=== PATIENT | female | born 1965 | race Caucasian/White ===

== ENCOUNTER 2016-10-09 17:03 | Emergency (ER) | payer OTHER ==
[~2016-10-09] VITALS: Ht 152.4 cm; Wt 103.0 kg
[~2016-10-09 17:03] MED LIST: ASPEC81 PO; ATOR-24 PO; CYAN100T6 PO; FISHOIL PO; LISI-729 PO; METO50TA16 PO; MULT-506 PO; NTRGSL/4 UT; RANITAB33 PO
[2016-10-09 17:05] VITALS: TEMP 37; Ht 152.4 cm; Wt 103.0 kg
[2016-10-09] MEDS ORDERED: ASPI81TA28 PO (18:53)
[2016-10-09] MEDS ORDERED: ATOR-26 PO (18:53)
[2016-10-09] MEDS ORDERED: CYAN10005 PO (18:53)
[2016-10-09] MEDS ORDERED: OMEG10007 PO (18:53)
--- NOTE | 2016-10-09 18:56 | EMERGENCY ROOM VISIT NOTE ---
History Report prepared by Elizabeth: Radha Pretty Under the Supervision of: Dr. Keith Hamilton M.D. First contact with patient: 18:43 Chief Complaint: CARDIAC ASSESSMENT Stated Complaint: PAIN DOWN LF ARM,HIGH BP Nursing Triage Summary: pt to the ED with c/o left arm pain and nausea and warm sensation that is intermittant in arm that started around 3 today but pain in arm all day elevated BP at work hx AR previously no chest pain no SOB no numbness and no tingling took BP meds History of Present Illness The patient is a 51 year old female who presents to the Emergency Room with complaints of intermittent left arm pain beginning today. The patient states that she has been having intermittent arm pain beginning 6 months ago. She notes that she has a history of heart attack and has a stent placed. She reports that today the pain in her arm scared her more and was slightly worse. She complains of a warm sensation in her left arm. The patient denies any numbness and tingling, pain with breathing, and diaphoresis. She states that she has occasional palpitations that she often ignores. The patient explains that her symptoms today are not similar to her heart attack and she previously felt nausea and diaphoresis. She reports that she had her last cardiac catheterization 5 years ago. She notes that she was prescribed Lisinopril and has not taken it in 6 months as she feel that she does not need it. The patient reports that she took aspirin but not the nitro that she has at home. Source of History: patient Onset: today Position: arm (left) Timing: intermittent Associated Symptoms: No numbness Note: She complains of a warm sensation in her left arm. The patient denies any tingling, pain with breathing. Review of Systems See HPI for pertinent positives & negatives. A total of 10 systems reviewed and were otherwise negative. Past Medical & Surgical Medical Problems: (1) Chronic Total Occlusion Of Coronary Artery (2) Coronary Atherosclerosis Of [place] Coronary Vessel (3) Renal Colic Family History No pertinent family history stated. Social History Smoking Status: Current Every Day Smoker Alcohol Use: none Marital Status: Housing Status: lives with family Current/Historical Medications Scheduled Aspirin (Aspirin Ec), 81 MG PO QAM Atorvastatin (Lipitor), 80 MG PO HS Cyanocobalamin (Vitamin B-12), 1,000 MCG PO QAM Fish Oil ([place]-3), 1 CAP PO TID Metoprolol Tartrate (Lopressor) (Lopressor), 50 MG PO BID Multivitamin (Multivitamin), 1 TAB PO DAILY Nitroglycerin (Nitrostat), 0.4 MG UT PRN Scheduled PRN Ranitidine Hcl (Zantac), 75 MG PO DAILY PRN for Indigestion Allergies Coded Allergies: No Known Allergies (Verified , 10/09/16) Physical Exam Vital Signs Date Time Temp Pulse Resp B/P (MAP) Pulse Ox O2 Delivery O2 Flow Rate FiO2 10/09/16 20:58 66 20 132/95 96 10/09/16 19:56 69 10/09/16 19:38 67 20 162/81 95 Room Air 10/09/16 19:38 97 Room Air 10/09/16 19:38 97 Room Air 10/09/16 19:07 95 Room Air 10/09/16 17:05 37.0 78 20 179/94 96 Room Air Physical Exam GENERAL: Patient is a healthy-appearing well-nourished female HEAD: Normocephalic atraumatic EYES: Ocular movements intact pupils equal and react to light OROPHARYNX mucous membranes are moist no exudates present no erythema or edema present NECK: Supple no nuchal rigidity CHEST: Good equal expansion LUNGS: Clear and equal to auscultation CARDIAC: Normal S1 and S2 ABDOMEN: Soft nontender no guarding BACK: No CVA tenderness EXTREMITIES: No pain upon palpation normal muscle strength in all groups no clubbing cyanosis or edema NEURO: Patient is following commands and answering questions appropriately. Alert and oriented x3 Cranial Nerves 2-12 grossly intact Medical Decision & Procedures ER Provider Diagnostic Interpretation: X-ray results as stated below per interpretation by me and the radiologist: CHEST ONE VIEW PORTABLE FINDINGS: The bones soft tissues and hemidiaphragms are normal. The cardiomediastinal silhouette is normal. The lungs are clear. The pulmonary vasculature is normal. IMPRESSION: Negative chest. The above report was generated using voice recognition software. It may contain grammatical, syntax or spelling errors. Electronically signed by: Noble Aguilar M.D. 10/09/2016 7:11 PM Dictated Date/Time: 10/09/2016 7:11 PM Laboratory Results 10/09/16 19:25 Red Blood Count 4.96, Mean Corpuscular Volume 91.7, Mean Corpuscular Hemoglobin 30.4, Mean Corpuscular Hemoglobin Concent 33.2, Mean Platelet Volume 11.1, Neutrophils (%) (Auto) 70.4, Lymphocytes (%) (Auto) 23.0, Monocytes (%) (Auto) 5.2, Eosinophils (%) (Auto) 1.0, Basophils (%) (Auto) 0.2, Neutrophils # (Auto) 9.19, Lymphocytes # (Auto) 3.00, Monocytes # (Auto) 0.68, Eosinophils # (Auto) 0.13, Basophils # (Auto) 0.02 10/09/16 19:25 Test 10/09/16 19:25 White Blood Count 13.05 K/uL (4.8-10.8) Red Blood Count 4.96 M/uL (4.2-5.4) Hemoglobin 15.1 g/dL (12.0-16.0) Hematocrit 45.5 % (37-47) Mean Corpuscular Volume 91.7 fL (80-100) Mean Corpuscular Hemoglobin 30.4 pg (25-34) Mean Corpuscular Hemoglobin Concent 33.2 g/dl (32-36) Platelet Count 232 K/uL (130-400) Mean Platelet Volume 11.1 fL (7.4-10.4) Neutrophils (%) (Auto) 70.4 % Lymphocytes (%) (Auto) 23.0 % Monocytes (%) (Auto) 5.2 % Eosinophils (%) (Auto) 1.0 % Basophils (%) (Auto) 0.2 % Neutrophils # (Auto) 9.19 K/uL (1.4-6.5) Lymphocytes # (Auto) 3.00 K/uL (1.2-3.4) Monocytes # (Auto) 0.68 K/uL (0.11-0.59) Eosinophils # (Auto) 0.13 K/uL (0-0.5) Basophils # (Auto) 0.02 K/uL (0-0.2) RDW Standard Deviation 45.7 fL (36.4-46.3) RDW Coefficient of Variation 13.6 % (11.5-14.5) Immature Granulocyte % (Auto) 0.2 % Immature Granulocyte # (Auto) 0.03 K/uL (0.00-0.02) Anion Gap 10.0 mmol/L (3-11) Est Creatinine Clear Calc Drug Dose 113.0 ml/min Estimated GFR () 119.5 Estimated GFR (Non- 103.1 BUN/Creatinine Ratio 19.0 (10-20) Calcium Level 8.4 mg/dl (8.5-10.1) Total Bilirubin 0.3 mg/dl (0.2-1) Direct Bilirubin < 0.1 mg/dl (0-0.2) Aspartate Amino Transf (AST/SGOT) 22 U/L (15-37) Alanine Aminotransferase (ALT/SGPT) 30 U/L (12-78) Alkaline Phosphatase 114 U/L (45-117) Total Creatine Kinase 118 U/L (26-192) Creatine Kinase MB 0.9 ng/ml (0.5-3.6) Creatine Kinase MB Ratio 0.8 (0-3.0) Troponin I < 0.015 ng/ml (0-0.045) Total Protein 7.4 gm/dl (6.4-8.2) Albumin 3.4 gm/dl (3.4-5.0) Lipase 123 U/L (73-393) Labs reviewed by ED physician. ECG Indication: other (arm pain) Rate (beats per minute): 77 Rhythm: normal sinus Findings: no acute ischemic change, no ectopy ED Course 1842: Past medical records reviewed. The patient was evaluated in room C6. A complete history and physical examination was performed. 2030: I discussed the patient's case with Dr. Salas, she has agreed to evaluate the patient for further management and care. 2042: I updated the patient. She does not want to stay in the hospital despite my strong recommendation. 2048: Upon reexamination the patient is doing well. I discussed results and treatment plan with the patient. The patient verbalizes agreement and understanding. The patient is ready for discharge. Medical Decision Differential diagnosis: Etiologies such as cardiac ischemia, aortic dissection, pulmonary embolism, pneumonia, pneumothorax, musculoskeletal, infections, pericarditis, myocarditis , esophageal rupture, gastrointestinal, as well as others were entertained. Medication Reconciliation: I attest that I have personally reviewed the patient' s current medication list Blood Pressure Screening: Patient was found to have an elevated blood pressure and was referred to their primary care doctor for recheck and further treatment This is a 51-year-old female who presents emergency department complaining of chest pain that has been on for the past 6 months. I will note that the patient has a history of a stent placed previously and she has not been taking her hypertensive medication. In addition I feel that the patient is a high risk patient is sent home. I discussed my findings with her including a normal EKG normal CK-MB and troponin. I felt that the patient should be admitted however the patient is adamantly refusing. I stressed the need for follow-up with her primary care physician. Patient and family were in agreement with the treatment plan. The patient has demonstrated no significant defect in the decision-making capacity to make choices. The encounter had a good level of communication with language the patient can easily understand. I feel trust was present and conveyed that our action/intentions were the best interest of the patient. The patient was given all relevant information and reiterated the explained risks and benefits. The patient explained the reasoning for refusing treatment clearly. The patient possesses and expresses a set of values and goals, the ability to communicate and understand, and an ability to reason and deliberate. Despite acting emphatically, attentively and with the utmost patient's the patient declined further treatment. I offered options, negotiated, and explored every reasonable choice. I must respect the patient's autonomy and that they feel that their choices are best for them despite the associated risks of leaving without completing the evaluation. The patient was informed about the findings as listed above. All questions were answered and he was pleased with the treatment. Return instructions were outlined and the patient was discharged in stable condition. Consults Time Called: 2028 Consulting Physician[place] Dr. Salas [place] [facility] [place] Call: 2030 I discussed the patient's case with Dr. Salas, she has agreed to evaluate the patient for further management and care. Impression Primary Impression: Precordial chest pain Scribe Attestation The scribe's documentation has been prepared under my direction and personally reviewed by me in its entirety. I confirm that the note above accurately reflects all work, treatment, procedures, and medical decision making performed by me. Departure Information Dispostion Being Evaluated By Hospitalist Zi Davenport M.D. (PCP) Forms IMPORTANT VISIT INFORMATION Patient Instructions Chest Pain - [facility], My [facility] Additional Instructions Resume Lisinopril FOllow up with Cardiology this week You have been examined and treated today on an emergency basis only. This is not a substitute for, or an effort to provide, complete comprehensive medical care. It is impossible to recognize and treat all injuries or illnesses in a single emergency department visit. It is therefore important that you follow up closely with Dr Amezcua. Call as soon as possible for an appointment. Thank you for your time and consideration. I look forward to speaking with you again soon. Please don't hesitate to call us if you have any questions.
--- NOTE | 2016-10-09 19:12 | DIAGNOSTIC IMAGING REPORT ---
CHEST ONE VIEW PORTABLE CLINICAL HISTORY: CHEST PAIN COMPARISON STUDY: 06/11/2009 FINDINGS: The bones soft tissues and hemidiaphragms are normal. The cardiomediastinal silhouette is normal. The lungs are clear. The pulmonary vasculature is normal. IMPRESSION: Negative chest. The above report was generated using voice recognition software. It may contain grammatical, syntax or spelling errors. Electronically signed by: Noble Aguilar M.D. 10/09/2016 7:11 PM Dictated Date/Time: 10/09/2016 7:11 PM
[2016-10-09 19:38] VITALS: O2SAT 97
[2016-10-09 19:41] LABS: BASO % 0.2 %; BASO ABS # 0.02 K/uL (0-0.2); COMPLETE YES; HEMATOCRIT 45.5 % (37-47); IG% 0.2 %; MEAN CELL VOLUME 91.7 fL (80-100); MEAN CORPUSCULAR HEMOGLOBIN 30.4 pg (25-34); MEAN CORPUSCULAR HGB CONC 33.2 g/dl (32-36); MEAN PLATELET VOLUME 11.1 fL (7.4-10.4); MONO % 5.2 %; NEUT % 70.4 %; PLATELET COUNT 232 K/uL (130-400); RED BLOOD COUNT 4.96 M/uL (4.2-5.4); WHITE BLOOD COUNT 13.05 K/uL (4.8-10.8)
[2016-10-09 19:59] LABS: ALT/SGPT 30 U/L (12-78); AST/SGOT 22 U/L (15-37); BLOOD UREA NITROGEN 12 mg/dl (7-18); CALCIUM 8.4 mg/dl (8.5-10.1); CARBON DIOXIDE 23 mmol/L (21-32); CHLORIDE 108 mmol/L (98-107); CREATININE 0.63 mg/dl (0.60-1.20); GLUCOSE 80 mg/dl (70-99); POTASSIUM 4.2 mmol/L (3.5-5.1); SODIUM 141 mmol/L (136-145)
[2016-10-09 20:04] LABS: ALKALINE PHOSPHATASE 114 U/L (45-117); CKMB/CK RATIO 0.8 (0-3.0)
[2016-10-09 20:58] VITALS: BP 132/95; PULSE 66; O2SAT 96
== END 2016-10-09 21:00 | disposition home or self-care (01) ==
LOC: C.EDB 17:03 → C.EDC 21:00
DX: R07.2 Precordial pain (principal); I25.82 Chronic total occlusion of coronary artery; I25.10 Atherosclerotic heart disease of native coronary artery without angina pectoris; I25.2 Old myocardial infarction; F17.200 Nicotine dependence, unspecified, uncomplicated; Z79.82 Long term (current) use of aspirin

== ENCOUNTER 2018-06-18 01:20 | Observation (INO) ==
--- NOTE | 2018-06-18 01:39 | Emergency Department Note ---
History of Present Illness General Chief Complaint: Chest Pain Stated Complaint: CHEST PAIN,TINGLING IN Source: patient Mode of arrival: ambulatory Limitations: no limitations History of Present Illness Provider Complaint: chest pain Onset (ago): hour(s) Time: 23:00 Duration: now resolved Onset: during rest Pain Location: substernal Pain Radiation: none Severity: mild Maximum Pain Intensity: 2 Current Pain Intensity: 0 Quality: + tightness Relieved By: + nothing Exacerbated By: + nothing Associated symptoms: no nausea, no vomiting, no diaphoresis, no dyspnea, no fever and no cough Treatments prior to arrival: none This is a 53-year-old female who presents with chest pain. She describes it as a tightness. It started approximately 2-1/2 hours prior to arrival. It is located in the substernal region without radiation. No associated shortness of breath, diaphoresis, nausea or lightheadedness. It is now resolved. At its maximal intensity was 2 out of 10 in severity. She also had an ache in her left arm which she thinks was unrelated to the chest discomfort. She does have a prior history of NH and has had a cardiac stent. Currently she is without symptoms. She did take an aspirin this morning as well as 2 aspirins prior to arrival when her symptoms started. Home Medications Home Medications Medication Instructions Recorded Confirmed Type Metoprolol Tartrate (Lopressor) 50 mg PO BID 90 Days #0 06/30/11 Rx (Lopressor) Multivitamin 1 tab PO DAILY #0 tab 01/04/14 History Nitroglycerin (Nitrostat) 0.4 mg UT PRN #0 btl 01/04/14 History RANITIDINE HCL (ZANTAC) 75 mg PO DAILY PRN #0 tab 01/04/14 History ASPIRIN (ASPIRIN EC) 81 mg PO QAM #0 10/09/16 History ATORVASTATIN (LIPITOR) 80 mg PO HS #0 tab 10/09/16 History Cyanocobalamin (Vitamin B-12) 1,000 mcg PO QAM #0 tab 10/09/16 History Fish Oil ([place]-3) 1 cap PO TID #0 cap 10/09/16 History Allergies Allergy/AdvReac Type Severity Reaction Status Date / Time No Known Allergies Allergy Verified 10/09/16 18:51 Past Med/Surg History Medical History CAD (coronary artery disease) Social History Feels Safe at Home: Yes Smoking Status: Current every day smoker Review of Systems A total of 10 systems reviewed and were otherwise negative Physical Exam Vital Signs Vital Signs - 24 hr 06/18/18 01:22 06/18/18 01:34 06/18/18 01:40 Temperature 37.2 C Temperature Source Oral Sepsis Recent Fever Within 48 Hours No Sepsis Action Taken by Nursing No Action Required Pulse Rate 77 74 Pulse Rate [Apical] 74 Respiratory Rate 18 18 22 Respiratory Effort / Characteristics Non-Labored Spontaneous Non-Labored Spontaneous Respiratory Depth Normal Normal Blood Pressure 161/104 H Blood Pressure [Right Arm] 176/95 H Blood Pressure Mean 123 Blood Pressure Mean [Right Arm] 122 Blood Pressure Position [Right Arm] Lying Pulse Oximetry 97 97 95 Oxygen Delivery Method Room Air Room Air Room Air Constitutional: Vital signs reviewed. Eyes: Pupils are equal round reactive to light. Conjunctiva are noninjected. ENT: Pharynx is clear without erythema or exudate. Mucous membranes are moist. Neck supple without meningeal signs. Respiratory: Clear to auscultation bilaterally. Breath sounds are equal bilaterally. Cardiovascular: Regular rate and rhythm. No rubs or gallops. GI: Soft, nondistended and nontender. Bowel sounds are present. Musculoskeletal: No peripheral edema. No lower extremity tenderness. No tenderness to the sternum. Integumentary: No cyanosis. or jaundice. Neurological: The patient is awake and alert. No focal deficits. Psychiatric: Normal affect. Not anxious appearing. Course Reevaluation(s) Reevaluation #1: No chest pain. Discuss test results and treatment plan. Time: 02:02 Consultations Consultation #1: Dr. Edmundo Acosta hospitalist Time: 02:04 Medical Decision Making Differential Diagnosis + pneumothorax, + unstable angina pectoris, + costochondritis, + cardiac ischemia and + pneumonia Medical Records Attestation: I reviewed the patient's medical records. Home Medications Current Medication List: was personally reviewed by me Laboratory Data Attestation: I reviewed the patient's lab results. Result diagrams: 06/18/18 01:40 06/18/18 01:40 Lab Results 06/18/18 Range/Units 01:40 WBC 11.06 H (4.8-10.8) K/uL RBC 4.88 (4.2-5.4) M/uL Hgb 15.1 (12.0-16.0) g/dL Hct 45.5 (37-47) % MCV 93.2 (80-100) fL MCH 30.9 (25-34) pg MCHC 33.2 (32-36) g/dL RDW Std Deviation 48.3 H (36.4-46.3) fL RDW Coeff of Raquel 14.2 (11.5-14.5) % Plt Count 253 (130-400) K/uL MPV 11.5 H (7.4-10.4) fL Immature Gran % (Auto) 0.3 % Neut % (Auto) 59.1 % Lymph % (Auto) 32.4 % [place] % (Auto) 6.1 % Eos % (Auto) 1.9 % Baso % (Auto) 0.2 % Immature Gran # (Auto) 0.03 H (0.00-0.02) K/uL Neut # (Auto) 6.54 H (1.4-6.5) K/uL Lymph # (Auto) 3.58 H (1.2-3.4) K/uL [place] # (Auto) 0.68 H (0.11-0.59) K/uL Eos # (Auto) 0.21 (0-0.5) K/uL Baso # (Auto) 0.02 (0-0.2) K/uL Imaging Data Chest x-ray: My impression: Chest x-ray per my interpretation shows no acute cardiopulmonary process. ECG Data Attestation: I personally reviewed and interpreted this ECG as follows: Indication: chest pain Rate (beats per minute): 81 Rhythm: normal sinus Findings: no PVC, no ST depression, no ST elevation and no acute ischemic change Blood Pressure Blood Pressure Findings: Elevated blood pressure Blood Pressure Disposition: Referred to patients primary care provider MDM Narrative I did perform a limited focused review of portions of the patient's old chart on the electronic medical record. The patient has had no recent pertinent visits to this hospital. I did evaluate the patient as noted above. The patient is presenting with chest tightness today. It is now resolved. She does have a prior history of NH and stent. She does not require any medications as her chest pain is resolved and she already took aspirin prior to arrival. IV access was established. The patient was placed on a continuous military professional. I did order and personally review the patient's 12-lead EKG and chest x-ray as described above. Her twelve-lead EKG does not demonstrate any acute ischemia. Her chest x-ray is unremarkable. I did order and review the patient's blood work as noted in the electronic medical record. Troponin is negative. I did discuss the test results with the patient. I did recommend hospitalization for repeat cardiac enzymes and further evaluation. I did discuss the case with Dr. Wyatt. Impression & Plan Chest pain, precordial Discharge Plan Visit Data Chief Complaint: Chest Pain Stated Complaint: CHEST PAIN,TINGLING IN ED Provider: Shun Ware Discharge Problem: Chest pain, precordial Patient Disposition: Being Evaluated by Hospitalist Condition: Good Forms Stand Alone Forms: Call Back Authorization, My [facility] Prescriptions Prescriptions: No Action Metoprolol Tartrate (Lopressor) (Lopressor) 50 MG tablet 50 mg PO BID 90 Days Qty: 0 RF: 3 Multivitamin tablet 1 tab PO DAILY Qty: 0 RF: 0 Nitroglycerin (Nitrostat) 0.4 MG tablet 0.4 mg UT PRN Qty: 0 RF: 0 RANITIDINE HCL (ZANTAC) 75 MG tablet 75 mg PO DAILY PRN (Reason: Indigestion) Qty: 0 RF: 0 ASPIRIN (ASPIRIN EC) 81 MG tablet 81 mg PO QAM Qty: 0 RF: 0 ATORVASTATIN (LIPITOR) 80 MG tablet 80 mg PO HS Qty: 0 RF: 0 Cyanocobalamin (Vitamin B-12) 1,000 MCG tablet 1,000 mcg PO QAM Qty: 0 RF: 0 Fish Oil ([place]-3) 1 EA capsule 1 cap PO TID Qty: 0 RF: 0 Referrals Referrals: Zi Amezcua [Primary Care Provider] -
[2018-06-18 01:50] LABS: Basophils # (auto) 0.02 K/uL (0-0.2); Basophils % (auto) 0.2 %; Eosinophils # (auto) 0.21 K/uL (0-0.5); Eosinophils % (auto) 1.9 %; Hematocrit (blood only) 45.5 % (37-47); Hemoglobin 15.1 g/dL (12.0-16.0); Immature Granulocytes # (auto) 0.03 K/uL (0.00-0.02); Immature Granulocytes % (auto) 0.3 %; Lymphocytes # (auto) 3.58 K/uL (1.2-3.4); Lymphocytes % (auto) 32.4 %; Mean Corpuscular Hgb Conc 33.2 g/dL (32-36); Mean Corpuscular Volume 93.2 fL (80-100); Mean Platelet Volume 11.5 fL (7.4-10.4); Monocytes # (auto) 0.68 K/uL (0.11-0.59); Monocytes % (auto) 6.1 %; Neutrophils # (auto) 6.54 K/uL (1.4-6.5); Neutrophils % (auto) 59.1 %; Platelet Count 253 K/uL (130-400); RDW Coefficient of Variation 14.2 % (11.5-14.5); RDW Standard Deviation 48.3 fL (36.4-46.3); Red Blood Count 4.88 M/uL (4.2-5.4); White Blood Count 11.06 K/uL (4.8-10.8)
[2018-06-18 02:06] LABS: BUN Creatinine Ratio 20.6 (10-20); Calcium 8.7 mg/dl (8.5-10.1); Creatinine Clr Calc Pharmacy 98.2 ml/min; Est GFR (African American) 114.9; Est GFR (Non-African American) 99.2; Potassium 3.9 mmol/L (3.5-5.1)
--- NOTE | 2018-06-18 03:12 | History & Physical Report ---
Date of Service June 18, 2018 Assessment & Plan (1) Chest pain, precordial: 53F with hx of CAd s/p TIM to RCA in 2011 presents with chest pressure retrosternal region and cold feeling in left thumb. Intial EKG and troponin unremarkable Will observe in tele serial CE and Echo cardiology consult in am NPO until seen by cardiology Present on Admission?: Yes (2) CAD (coronary artery disease): Steven was heart alert in 2011 and was taken to cardiac cath emergently and s/p stent to RCA. On aspirin, lopressor and statin Present on Admission?: Yes (3) Hyperlipidemia: on statin will check fasting lipid profile Present on Admission?: Yes (4) Tobacco abuse: trying to cut down counselling Present on Admission?: Yes History of Present Illness Chief Complaint: Chest pain Primary Care Provider: Zi Amezcua This is a 53-year-old female with past medical history pertinent for CAD status post stent in 2011 obesity ongoing tobacco use disorder hyperlipidemia presents with chest pain. Around 11 PM she just came from work consisting of a chair when she noticed chest pressure 2 2 4/10 in severity and also and also cold feeling on her left thumb. She took 2 aspirin and came to the ER. Currently still has some mild discomfort. Hemodynamically stable. Denies any shortness of breath or cough. No fever or chills. No nausea or vomiting or abdominal pain. No dizziness. No sweating. Patient is trying to quit smoking currently smokes 1 pack every 3-4 days. Allergies Allergy/AdvReac Type Severity Reaction Status Date / Time No Known Allergies Allergy Verified 10/09/16 18:51 Home Medications Home Medications Medication Instructions Recorded Confirmed Type [place] August 1 puff INHALATION DAILY 06/18/18 06/18/18 History Wellbutrin SR 150 mg PO BID 06/18/18 06/18/18 History albuterol sulfate 2 puff INHALATION QID PRN 06/18/18 06/18/18 History aspirin 81 mg PO DAILY 06/18/18 06/18/18 History atorvastatin 80 mg PO PM 06/18/18 06/18/18 History cyanocobalamin (vitamin B-12) 1,000 mcg PO DAILY 06/18/18 06/18/18 History ipratropium-albuterol 3 ml INHALATION QID PRN 06/18/18 06/18/18 History lisinopril 2.5 mg PO DAILY 06/18/18 06/18/18 History metoprolol tartrate 50 mg PO BID 06/18/18 06/18/18 History multivitamin [Multiple Vitamins] 1 tab PO DAILY 06/18/18 06/18/18 History nitroglycerin [Nitrostat] 0.4 mg SUBLINGUAL UD PRN 06/18/18 06/18/18 History omega [id number]-fish oil [Fish Oil] 1 cap PO TID 06/18/18 06/18/18 History ranitidine HCl 75 mg PO BID PRN 06/18/18 06/18/18 History Past Med/Surg History Medical History CAD (coronary artery disease) Hyperlipidemia Tobacco abuse Surgical History H/O tubal ligation History of cardiac cath History of tonsillectomy Hx laparoscopic cholecystectomy Family History Father Diabetes Heart disease Mother Hypertension Social History Feels Safe at Home: Yes Smoking Status: Current every day smoker Hx Alcohol Use: Yes Hx Substance Use: No Immunizations: Pneumonia vaccine 04/27/2018 Flu vaccine 04/27/2018 Review of Systems Constitutional- no fever Eyes- no acute visual changes Pulmonary- no cough, no wheezing, no shortness of breath Cardiac- mild chest pain, no palpitations,no dependent edema GI- no nausea, no vomiting, no diarrhea, no melena, no hematochezia - no dysuria, no hematuria Derm- no rashes Hematologic- no unusual bruising, no unusual bleeding Neuro- no headaches, no focal neurologic symptoms Physical Exam Vital Signs (Past 24 Hours): Last Vital Signs Temp 37.2 C 06/18/18 01:22 Pulse 74 06/18/18 01:40 Resp 22 06/18/18 01:40 BP 176/95 H 06/18/18 01:40 Pulse Ox 95 06/18/18 01:40 Physical Exam: General- Not in distress Head- atraumatic Eyes- PERRL, EOMI, anicteric ENT- oropharynx clear Neck- supple, no JVD, no adenopathy, carotids +2/2, no bruits appreciated Lungs- clear to auscultation and percussion Heart- regular rhythm; no murmur, no gallop, no rub appreciated Abdomen- normal bowel sounds, soft, nontender, no masses Extremities- no pretibial edema, Neuro- alert, oriented x 3; PERRL, EOMI; no facial palsy; no dysarthria;non focal Skin- warm & dry Results & Data Laboratory Results Laboratory Results - last 24 hr 06/18/18 06/18/18 06/18/18 01:40 01:40 01:45 WBC 11.06 H RBC 4.88 Hgb 15.1 Hct 45.5 MCV 93.2 MCH 30.9 MCHC 33.2 RDW Std Deviation 48.3 H RDW Coeff of Raquel 14.2 Plt Count 253 MPV 11.5 H Immature Gran % (Auto) 0.3 Neut % (Auto) 59.1 Lymph % (Auto) 32.4 [place] % (Auto) 6.1 Eos % (Auto) 1.9 Baso % (Auto) 0.2 Immature Gran # (Auto) 0.03 H Neut # (Auto) 6.54 H Lymph # (Auto) 3.58 H [place] # (Auto) 0.68 H Eos # (Auto) 0.21 Baso # (Auto) 0.02 Sodium 140 Potassium 3.9 Chloride 108 H Carbon Dioxide 29 Anion Gap 3.0 BUN 14 Creatinine 0.68 Est Cr Clr Drug Dosing 98.2 Est GFR ( Amer) 114.9 Est GFR (Non-Af Amer) 99.2 BUN/Creatinine Ratio 20.6 H Glucose 120 H Calcium 8.7 POC Troponin I < 0.03 Diagnostic Findings CXR: No acute findings ECG Additional Comments: ECG: nSR with rate of 81. q waves in inferior leads. No acute St changes seen. Code Status & VTE Plan Code Status FULL CODE VTE Prophylaxis Plan VTE Prophylaxis will be ordered: Yes
[2018-06-18] MEDS ORDERED: ACETAMINOPHEN 325 MG TAB PO PRN (04:25)
[2018-06-18] MEDS ORDERED: ALBUTEROL HFA 8 GM INHALER INH PRN (04:25)
[2018-06-18] MEDS ORDERED: ALUMINUM/MAGNESIUM SUSP 30 ML UDC PO PRN (04:25)
[2018-06-18] MEDS ORDERED: MoRPHine SULFATE 2 MG/ML CARP IV PRN (04:25)
[2018-06-18] MEDS ORDERED: ALBUT/IPRATROP 3MG/0.5MG NEB 3 ML VIAL INH PRN (04:25)
[2018-06-18] MEDS ORDERED: ONDANSETRON INJ 2 MG/ML 2 ML VIAL IV PRN (04:25)
[2018-06-18] MEDS ORDERED: NITROGLYCERIN SL 0.4 MG/TAB TAB SL PRN ×2 (04:25)
[2018-06-18 05:20] LABS: Basophils # (auto) 0.03 K/uL (0-0.2); Basophils % (auto) 0.3 %; Eosinophils # (auto) 0.19 K/uL (0-0.5); Eosinophils % (auto) 1.6 %; Hematocrit (blood only) 44.3 % (37-47); Hemoglobin 14.6 g/dL (12.0-16.0); Immature Granulocytes # (auto) 0.04 K/uL (0.00-0.02); Immature Granulocytes % (auto) 0.3 %; Lymphocytes # (auto) 3.46 K/uL (1.2-3.4); Lymphocytes % (auto) 29.4 %; Mean Corpuscular Volume 94.9 fL (80-100); Mean Platelet Volume 11.7 fL (7.4-10.4); Monocytes # (auto) 0.52 K/uL (0.11-0.59); Monocytes % (auto) 4.4 %; Neutrophils # (auto) 7.52 K/uL (1.4-6.5); Platelet Count 231 K/uL (130-400); RDW Coefficient of Variation 14.3 % (11.5-14.5); RDW Standard Deviation 49.1 fL (36.4-46.3); Red Blood Count 4.67 M/uL (4.2-5.4); White Blood Count 11.76 K/uL (4.8-10.8)
[2018-06-18 05:51] LABS: BUN Creatinine Ratio 23.4 (10-20); Blood Urea Nitrogen 14 mg/dl (7-18); Calcium 8.3 mg/dl (8.5-10.1); Carbon Dioxide 27 mmol/L (21-32); Chloride 109 mmol/L (98-107); Creatinine Clr Calc Pharmacy 111.3 ml/min; Est GFR (African American) 119.8; Est GFR (Non-African American) 103.3; Glucose 108 mg/dl (70-99); Magnesium 2.1 mg/dl (1.8-2.4); Potassium 4.1 mmol/L (3.5-5.1); Sodium 140 mmol/L (136-145)
[2018-06-18 05:55] LABS: Chol HDL Ratio 4; Cholesterol 146 mg/dl (0-200); HDL Cholesterol 36 mg/dl; LDL Cholesterol Calculated 81 mg/dl; Triglycerides 143 mg/dl (0-150); Troponin I < 0.015 ng/ml (0-0.045); VLDL Cholesterol 29 mg/dl
--- NOTE | 2018-06-18 07:46 | XRay Report ---
XR chest 1V portable HISTORY: Atypical Chest Pain COMPARISON: Chest 10/09/2016. FINDINGS: No pneumothorax. No pleural effusions. The lungs are clear. The heart remains mildly enlarg ed. IMPRESSION: Stable mild cardiomegaly. No acute process within the chest. Electronically signed by: Maury Phillips M.D. 06/18/2018 7:44 AM
[2018-06-18] MEDS ORDERED: LISINOPRIL 2.5 MG TAB PO SCH (09:00)
[2018-06-18] MEDS ORDERED: MULTIVITAMIN TAB PO SCH (09:00)
[2018-06-18] MEDS ORDERED: BuPROPion SR 150 MG TABCR PO SCH (09:00)
[2018-06-18] MEDS ORDERED: CYANOCOBALAMIN 500 MCG TABLET (VITAMIN B-12) PO SCH (09:00)
[2018-06-18] MEDS ORDERED: METOPROLOL TARTRATE 50 MG TAB PO SCH (09:00)
[2018-06-18] MEDS ORDERED: ASPIRIN 81 MG ECTAB PO SCH (09:00)
--- NOTE | 2018-06-18 12:56 | Cardiology Consultation ---
Date of Consultation June 18, 2018 Assessment & Plan (1) Chest pain, precordial: Believe that this is noncardiac chest pain. I do not believe any additional workup in the hospital was indicated. Her cardiac markers are negative and her EKG shows no acute changes. Believe that we can discharge her to outpatient follow-up. (2) CAD (coronary artery disease): Been stable following her stent placement in 2011. She does have sublingual nitroglycerin at home which I indicated she should take if she has a return of her discomfort and then return to the emergency department. (3) Hyperlipidemia: (4) Tobacco abuse: I counseled her regarding the need for smoking sensation. (5) Diabetes: History of Present Illness Attending Physician: French Gill MD History of Present Illness This is a 53-year-old female with known coronary artery disease and previous coronary stent in the right coronary artery during an acute inferior posterior wall myocardial infarction in 2011. She is a diabetic and has a history of cigarette smoking. She has been in her usual state of health. 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 She had some tingling of the left arm and thumb along with some discomfort in her left upper chest and shoulder yesterday when she stopped after work to get fuel and food. She became concerned and came to the emergency department. Her discomfort is completely resolved. Her cardiac markers are negative. Her EKG showed no acute changes. She has no complaints today and would like to be discharged home. Past medical history: 1. Coronary intervention during an infarction receiving a stent within the right coronary artery 2011 2. Diabetes 3. Obesity 4. hypertension 5. smoking Allergies Allergy/AdvReac Type Severity Reaction Status Date / Time No Known Allergies Allergy Verified 10/09/16 18:51 Home Medications Home Medications Medication Instructions Recorded Confirmed Type Breo Ellipta 1 puff INHALATION DAILY 06/18/18 06/18/18 History Wellbutrin SR 150 mg PO BID 06/18/18 06/18/18 History albuterol sulfate 2 puff INHALATION QID PRN 06/18/18 06/18/18 History aspirin 81 mg PO DAILY 06/18/18 06/18/18 History atorvastatin 80 mg PO PM 06/18/18 06/18/18 History cyanocobalamin (vitamin B-12) 1,000 mcg PO DAILY 06/18/18 06/18/18 History ipratropium-albuterol 3 ml INHALATION QID PRN 06/18/18 06/18/18 History lisinopril 2.5 mg PO DAILY 06/18/18 06/18/18 History metoprolol tartrate 50 mg PO BID 06/18/18 06/18/18 History multivitamin [Multiple Vitamins] 1 tab PO DAILY 06/18/18 06/18/18 History nitroglycerin [Nitrostat] 0.4 mg SUBLINGUAL UD PRN 06/18/18 06/18/18 History omega 3-mav-nye-fish oil [Fish Oil] 1 cap PO TID 06/18/18 06/18/18 History ranitidine HCl 75 mg PO BID PRN 06/18/18 06/18/18 History Patient History Medical History CAD (coronary artery disease) Hyperlipidemia Tobacco abuse Surgical History H/O tubal ligation History of cardiac cath History of tonsillectomy Hx laparoscopic cholecystectomy Family History Father Diabetes Heart disease Mother Hypertension Social History Preferred Language: [place] Communication Ability: Effective 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 All other 10 point review of systems are negative. Physical Exam Vital Signs (Past 24 Hours): Last Vital Signs Temp 36.5 C 06/18/18 11:33 Pulse 66 06/18/18 11:33 Resp 16 06/18/18 11:33 BP 98/63 L 06/18/18 11:33 Pulse Ox 93 06/18/18 11:33 Physical Exam: General: no acute distress and stated age Head: normocephalic, no masses, lesions, tenderness or abnormalities Eyes: conjunctiva are pink and non-injected, sclera clear Neck: supple, no adenopathy, no bruits, normal jugular venous pulse, no hepatojugular reflux Chest: normal shape and normal respiratory effort Lungs: clear to auscultation and percussion Cardiac Exam: - regular rate & rhythm, no murmurs gallops or rubs - normal S1, normal S2 Pulses: 2(+) throughout Abdomen: abdomen soft, non-tender, no abnormal masses and no hepatosplenomegaly Musculoskeletal: no gait disturbance, no joint inflammation, no deforming arthritis Extremities: no edema and no cyanosis Neuro: grossly normal exam Results & Data Laboratory Results Laboratory Results - last 24 hr 06/18/18 06/18/18 06/18/18 01:40 01:40 01:40 WBC 11.06 H RBC 4.88 Hgb 15.1 Hct 45.5 MCV 93.2 MCH 30.9 MCHC 33.2 RDW Std Deviation 48.3 H RDW Coeff of Raquel 14.2 Plt Count 253 MPV 11.5 H Immature Gran % (Auto) 0.3 Neut % (Auto) 59.1 Lymph % (Auto) 32.4 [place] % (Auto) 6.1 Eos % (Auto) 1.9 Baso % (Auto) 0.2 Immature Gran # (Auto) 0.03 H Neut # (Auto) 6.54 H Lymph # (Auto) 3.58 H [place] # (Auto) 0.68 H Eos # (Auto) 0.21 Baso # (Auto) 0.02 Sodium 140 Potassium 3.9 Chloride 108 H Carbon Dioxide 29 Anion Gap 3.0 BUN 14 Creatinine 0.68 Est Cr Clr Drug Dosing 98.2 Est GFR ( Amer) 114.9 Est GFR (Non-Af Amer) 99.2 BUN/Creatinine Ratio 20.6 H Glucose 120 H Calcium 8.7 Magnesium POC Troponin I Troponin I Triglycerides Cholesterol LDL Cholesterol, Calc VLDL Cholesterol, Calc HDL Cholesterol Cholesterol/HDL Ratio Specimen Hemolysis Hepatitis C Ab Screen Neg 06/18/18 06/18/18 06/18/18 01:45 04:56 04:56 WBC 11.76 H RBC 4.67 Hgb 14.6 Hct 44.3 MCV 94.9 MCH 31.3 MCHC 33.0 RDW Std Deviation 49.1 H RDW Coeff of Raquel 14.3 Plt Count 231 MPV 11.7 H Immature Gran % (Auto) 0.3 Neut % (Auto) 64.0 Lymph % (Auto) 29.4 [place] % (Auto) 4.4 Eos % (Auto) 1.6 Baso % (Auto) 0.3 Immature Gran # (Auto) 0.04 H Neut # (Auto) 7.52 H Lymph # (Auto) 3.46 H [place] # (Auto) 0.52 Eos # (Auto) 0.19 Baso # (Auto) 0.03 Sodium 140 Potassium 4.1 Chloride 109 H Carbon Dioxide 27 Anion Gap 4.0 BUN 14 Creatinine 0.60 Est Cr Clr Drug Dosing 111.3 Est GFR ( Amer) 119.8 Est GFR (Non-Af Amer) 103.3 BUN/Creatinine Ratio 23.4 H Glucose 108 H Calcium 8.3 L Magnesium 2.1 POC Troponin I < 0.03 Troponin I < 0.015 Triglycerides 143 Cholesterol 146 LDL Cholesterol, Calc 81 VLDL Cholesterol, Calc 29 HDL Cholesterol 36 Cholesterol/HDL Ratio 4 Specimen Hemolysis Hepatitis C Ab Screen 06/18/18 10:55 WBC RBC Hgb Hct MCV MCH MCHC RDW Std Deviation RDW Coeff of Raquel Plt Count MPV Immature Gran % (Auto) Neut % (Auto) Lymph % (Auto) [place] % (Auto) Eos % (Auto) Baso % (Auto) Immature Gran # (Auto) Neut # (Auto) Lymph # (Auto) [place] # (Auto) Eos # (Auto) Baso # (Auto) Sodium Potassium Chloride Carbon Dioxide Anion Gap BUN Creatinine Est Cr Clr Drug Dosing Est GFR ( Amer) Est GFR (Non-Af Amer) BUN/Creatinine Ratio Glucose Calcium Magnesium POC Troponin I Troponin I < 0.015 Triglycerides Cholesterol LDL Cholesterol, Calc VLDL Cholesterol, Calc HDL Cholesterol Cholesterol/HDL Ratio Specimen Hemolysis Hepatitis C Ab Screen Medications Administered Current Inpatient Medications Acetaminophen (Tylenol) 650 mg PO Q4H PRN PRN Reason: Pain or Fever Stop: 07/18/18 04:24 Al Hydrox/Mg Hydrox/Simethicone (Maalox) 15 ml PO Q4H PRN PRN Reason: Dyspepsia Stop: 07/18/18 04:24 Albuterol (Duoneb) 3 ml INH QID PRN PRN Reason: Shortness Of Breath Or Wheezing Stop: 07/18/18 04:24 Albuterol (Ventolin Hfa) 2 puffs INH QID PRN PRN Reason: Shortness Of Breath Or Wheezin Aspirin (Ecotrin Ectab) 81 mg PO DAILY [facility] Stop: 07/18/18 08:59 Last Admin: 06/18/18 08:18 Dose: 81 mg Documented by: Atorvastatin Calcium (Lipitor) 80 mg PO PM [facility] Stop: 07/18/18 20:59 Bupropion HCl (Wellbutrin-Sr) 150 mg PO BID TJ Stop: 07/18/18 08:59 Last Admin: 06/18/18 08:20 Dose: Not Given Documented by: Cyanocobalamin (Vitamin B-12) 1,000 mcg PO DAILY TJ Stop: 07/18/18 08:59 Last Admin: 06/18/18 08:17 Dose: 1,000 mcg Documented by: Lisinopril (Zestril) 2.5 mg PO DAILY [facility] Stop: 07/18/18 08:59 Last Admin: 06/18/18 08:18 Dose: 2.5 mg Documented by: Metoprolol Tartrate (Lopressor) 50 mg PO BID [facility] Stop: 07/18/18 08:59 Last Admin: 06/18/18 08:18 Dose: 50 mg Documented by: Miscellaneous (Order Awaiting Action) 1 ea N/A QS [facility] Stop: 07/18/18 07:59 Last Admin: 06/18/18 08:09 Dose: Not Given Documented by: Morphine Sulfate (Morphine Sulfate) 2 mg IV Q30M PRN PRN Reason: Chest Pain Stop: 07/02/18 04:24 Multivitamins (Multivitamin Tab) 1 tab PO DAILY [facility] Stop: 07/18/18 08:59 Last Admin: 06/18/18 08:18 Dose: 1 tab Documented by: Nitroglycerin (Nitrostat) 0.4 mg SL UD PRN PRN Reason: Chest Pain Stop: 07/18/18 04:24 Ondansetron HCl (Zofran) 4 mg IV Q6H PRN PRN Reason: Nausea Stop: 07/18/18 04:24 Ranitidine HCl (Zantac) 75 mg PO BID PRN PRN Reason: Heartburn Stop: 07/18/18 04:24 Last Admin: 06/18/18 08:18 Dose: 75 mg Documented by:
[2018-06-18] MEDS ORDERED: PERFLUTREN LIPID MICROSPHERE (DEFINITY) IV ONE (13:35)
--- NOTE | 2018-06-18 16:06 | Hospitalist Progress Note ---
Date of Service June 18, 2018 Assessment & Plan (1) Chest pain, precordial: Presented with atypical chest pain. No acute EKG changes. Troponins negative x 3. Seen in consultation by Cardiology. Echo did not showed normal LVEF without wall motion abnormalities. Milo that pain was atypical. No need for further cardiac evaluation. No further chest pain or other worrisome symptoms. (2) CAD (coronary artery disease): History of CAD with PCI RCA several years ago. Acute IN ruled out as discussed above. Continue aspirin, metoprolol, and statin. (3) Hyperlipidemia: LDL-c 81. Continue atorvastatin. (4) Tobacco abuse: Smoking cessation enouraged. (5) DVT prophylaxis: Low risk for VTE per IMPROVE risk assessment model. Ambulating. (6) Discharge planning issues: Discharge to home. Family Medicine follow-up with Dr. Amezcua. Subjective Patient seen in her room. No further chest pain. No SOB. No GI symptoms. Ambulating. Would like to go home. Physical Exam Vital Signs (Past 24 Hours): Last Vital Signs Temp 36.5 C 06/18/18 15:27 Pulse 61 06/18/18 15:27 Resp 16 06/18/18 15:27 BP 116/60 06/18/18 15:27 Pulse Ox 94 06/18/18 15:27 Constitutional: no acute distress Respiratory: no respiratory distress Auscultation: lungs clear to auscultation bilaterally Cardiovascular: Rate/Rhythm: regular rate and regular rhythm Heart Sounds: no gallop, no murmur and no cardiac rub Vessels: no JVD Extremities: no calf tenderness and no edema Gastrointestinal (Abdomen): normal bowel sounds, soft, nontender, no hepatosplenomegaly Skin: no rashes, warm and dry Psychiatric: Orientation: alert and oriented x 3
[2018-06-18] MEDS ORDERED: ATORVASTATIN 40 MG TAB PO SCH (21:00)
--- NOTE | 2018-06-20 14:47 | Discharge Summary ---
Date of Service June 20, 2018 Admission HPI Per Admitting Provider This is a 53-year-old female with past medical history pertinent for CAD status post stent in 2011 obesity ongoing tobacco use disorder hyperlipidemia presents with chest pain. Around 11 PM she just came from work consisting of a chair when she noticed chest pressure 2 2 4/10 in severity and also and also cold feeling on her left thumb. She took 2 aspirin and came to the ER. Currently still has some mild discomfort. Hemodynamically stable. Denies any shortness of breath or cough. No fever or chills. No nausea or vomiting or abdominal pain. No dizziness. No sweating. Patient is trying to quit smoking currently smokes 1 pack every 3-4 days. Admission Exam Per Admitting Provider General- Not in distress Head- atraumatic Eyes- PERRL, EOMI, anicteric ENT- oropharynx clear Neck- supple, no JVD, no adenopathy, carotids +2/2, no bruits appreciated Lungs- clear to auscultation and percussion Heart- regular rhythm; no murmur, no gallop, no rub appreciated Abdomen- normal bowel sounds, soft, nontender, no masses Extremities- no pretibial edema, Neuro- alert, oriented x 3; PERRL, EOMI; no facial palsy; no dysarthria;non focal Skin- warm & dry Principal Diagnosis chest pain- IN ruled out Discharge Data Allergies Allergy/AdvReac Type Severity Reaction Status Date / Time No Known Allergies Allergy Verified 10/09/16 18:51 Consultations 06/18/18 01:59 ED Decision to Admit Stat 06/18/18 08:00 Consult Cardiology Routine Hospital Course (1) Chest pain, precordial: Presented with atypical chest pain. No acute EKG changes. Troponins negative x 3. Seen in consultation by Cardiology. Echo showed normal LVEF without wall motion abnormalities. [place] that pain was atypical. No need for further cardiac evaluation. No further chest pain or other worrisome symptoms. (2) CAD (coronary artery disease): History of CAD with PCI RCA several years ago. Acute IN ruled out as discussed above. Continue aspirin, metoprolol, and statin. (3) Hyperlipidemia: LDL-c 81. Continue atorvastatin. (4) Tobacco abuse: Smoking cessation encouraged. (5) DVT prophylaxis: Low risk for VTE per IMPROVE risk assessment model. Ambulating. (6) Discharge planning issues: Discharge to home. Family Medicine follow-up with Dr. Amezcua. Total Time Total Time Spent Total Time Spent (In Minutes): 30 Discharge Plan Discharge Items Patient Disposition: Home - Self-Care Reason For Visit: CHEST PAIN Discharge Diagnosis: chest pain- no sign of heart attack Condition: Good Discharge Goals: Decrease discomfort Activity: Resume your previous activity Non-emergency contact: Primary Care Provider, Hospitalist and Material Requisitioner Call non-emergency contact if: you have any medication questions and your symptoms worsen Follow-up/Referrals: Zi Amezcua [Primary Care Provider] - (06/23/2018 12:40 PM Gisel Vuong PA-C) Diet: Heart Healthy Addtl Provider Instructions: It is very important that you quit smoking. OTHER INSTRUCTIONS: Seek medical attention if you have: * temperature above 101 * chest pain or trouble breathing * abdominal pain, nausea, vomiting * diarrhea, dark stools or bloody stools * any unanswered questions or concerns Call 911 if symptoms are severe. Call if you have any questions or problems. My cell # is [phone]. You can also reach a [facility] hospitalist on duty at [facility] 24 hours a day by calling [phone]. Prescriptions: Continued multivitamin [Multiple Vitamins] Tablet 1 tab PO DAILY RF: 0 atorvastatin 80 mg Tablet 80 mg PO PM RF: 0 cyanocobalamin (vitamin B-12) 1,000 mcg Tablet 1,000 mcg PO DAILY RF: 0 aspirin 81 mg Tablet,Delayed Release (Dr/Ec) 81 mg PO DAILY RF: 0 ranitidine HCl 75 mg Tablet 75 mg PO BID PRN (Reason: Heartburn) RF: 0 metoprolol tartrate 50 mg Tablet 50 mg PO BID RF: 0 nitroglycerin [Nitrostat] 0.4 mg Tablet, Sublingual 0.4 mg sublingual UD PRN (Reason: Chest Pain) RF: 0 lisinopril 2.5 mg Tablet 2.5 mg PO DAILY RF: 0 omega 2-xjs-chx-fish oil [Fish Oil] 1,000 mg (120 mg-180 mg) Capsule 1 cap PO TID RF: 0 ipratropium-albuterol 0.5 mg-3 mg(2.5 mg base)/3 mL Solution For Nebulization 3 ml INHALATION QID PRN (Reason: Shortness Of Breath Or Wheezing) RF: 0 Breo Ellipta 1 puff 1 puff Inhalation DAILY RF: 0 Wellbutrin SR 150 mg 150 mg PO BID RF: 0 albuterol sulfate 2 puff 2 puff Inhalation QID PRN (Reason: Shortness Of Breath Or Wheezing) RF: 0 Visit Report Forms: Smoking Cessation Stand-Alone Forms: Call Back Authorization, [facility] Discharge Orders: Discharge Order (Routine); Ordered 06/18/18 Ordered By: French Gill Admission Data Admit Date/Time: 06/18/18 03:07 Attending Provider: French Gill Admit Provider: Abel Wyatt Primary Care Provider: Zi Amezcua Other Providers: Abel Wyatt ; Silvino Peterson ; Ye Wong ; Scott lAonso ; Shun Glynn ; Con Phelan ; Noble Krishna ; Roxana Curran ; Jessica Reardon Service: Telemetry Medical Other Interventions: Discharge Summary Assessment (RN) Last Done: 06/18/18 16:22 DC Date/Time DO NOT enter until pt leaves facility: 06/18/18 17:06
== END 2018-06-18 17:06 | disposition home or self-care (01) ==
LOC: ED 01:20 → 2W 01:20